=== PATIENT | female | born 1950 | race Caucasian/White ===

== ENCOUNTER 2020-04-06 07:59 | Outpatient (CLI) | payer MEDICARE, SELFPAY ==
--- NOTE | ~2020-04-06 | XR_ITS ---
EXAMINATION: XR hand LT 2V, XR hand RT 2V DATE: 04/06/2020 09:47 INDICATION: Bilateral hand pain TECHNIQUE: 1. Posteroanterior, oblique and lateral views of the left hand were obtained. 2. Posteroanterior, oblique and lateral views of the right hand were obtained. COMPARISON: None. FINDINGS: Diffuse osteopenia. Alignment is normal at both hands. No fracture. Polyarticular osteoarthritis suzy acterized by nonuniform joint space narrowing or marginal osteophytes with typical distribution at mu ltiple joints in both hands. This is of moderate severity at the right third distal interphalangeal j oint and mild at the bilateral wrist, midcarpal, triscaphe, first carpometacarpal and majority the me tacarpophalangeal and interphalangeal joints. There is a prominent dorsal osteophyte at the base of t he third distal phalanx with mild flexion at the distal interphalangeal joint suggesting prior avulsi on injury at the insertion of the extensor tendon. No cortical erosions to suggest an inflammatory ar thritis. Mild soft tissue swelling along the bilateral ulnar styloid processes and mild periarticular soft tissue swelling and subtle the metacarpophalangeal and interphalangeal joints. IMPRESSION: 1. Relatively symmetric pattern of generally mild polyarticular osteoarthritis throughout both hands and wrists. 2. Mild flexion with more severe moderate osteoarthritis at the right third distal interphalangeal chuck int which suggests secondary osteoarthritis related to prior extensor tendon avulsion injury. 3. Diffuse osteopenia. Reviewed, dictated and finalized at location B. IMPRESSION: 1. Relatively symmetric pattern of generally mild polyarticular osteoarthritis throughout both hands and wrists. 2. Mild flexion with more severe moderate osteoarthritis at the right third dis matt interphalangeal joint which suggests secondary osteoarthritis related to pr ior extensor tendon avulsion injury. 3. Diffuse osteopenia.
[2020-04-06 08:54] LABS: Basophils Percent Auto 0.5 % (0.2-1.2); Eosinophils Percent Auto 0.8 % (0-4.4); Hematocrit 42.8 % (37.0-47.0); Hemoglobin 14.4 g/dL (12.0-15.0); Immature Granulocyte Absolute 0.01 K/mm3 (0.00-0.031); Immature Granulocyte Percent A 0.3 % (0-0.5); Lymphocytes Absolute Auto 1.07 K/mm3 (0.9-3.2); Lymphocytes Percent Auto 29.4 % (18.3-44.2); Mean Corpuscular HGB Conc 33.6 g/dl (32-36); Mean Corpuscular Volume 92.2 fl (80-100); Mean Platelet Volume 10.1 fl (7.4-10.4); Monocytes Absolute Auto 0.4 K/mm3 (0.1-0.6); Monocytes Percent Auto 10.2 % (2.6-8.5); Neutrophils Absolute Auto 2.1 K/mm3 (1.3-6.7); Neutrophils Percent Auto 58.8 % (45.5-73.1); Platelet Count Result 150 k/mm3 (150-375); Red Blood Count 4.64 M/mm3 (4.2-5.4); Red Cell Distribution Width 13.5 % (11.5-14.5); White Blood Count 3.6 K/mm3 (4.5-10.0)
[2020-04-06 09:08] LABS: Rheumatoid Factor < 8.6 IU/ML (<12)
[2020-04-06 09:09] LABS: Alanine Aminotransferase 25 U/L (4-35); Albumin Level 4.4 g/dL (3.5-5.1); Alkaline Phosphatase 70 U/L (38-126); Anion Gap 5 mmol/L (8-16); Aspartate Amino Transferase 33 U/L (14-36); Bilirubin,Total 0.7 mg/dL (0.2-1.3); Blood Urea Nitrogen 13 mg/dL (7-17); CRP < 0.5 mg/dL (<1.0); Calcium 9.6 mg/dL (8.4-10.2); Carbon Dioxide 33 mmol/L (22-30); Chloride 103 mmol/L (98-107); Cholesterol 184 mg/dL (0-200); Estimated Glomerular Filt Rate 55; Glucose 101 mg/dL (65-105); HDL Direct 64 mg/dL; Potassium 4.4 mmol/L (3.4-5.0); Sodium 141 mmol/L (137-145); Triglycerides 162 mg/dL (<150)
[2020-04-06 09:18] LABS: LDL Cholesterol Direct 87 mg/dL
[2020-04-06 09:21] LABS: Erythrocyte Sedimentation Rate 26 mm/hr (0-20)
== END 2020-04-06 08:00 | disposition home or self-care (01) ==
DX: I10 Essential (primary) hypertension (principal); E78.2 Mixed hyperlipidemia; J44.9 Chronic obstructive pulmonary disease, unspecified; M19.042 Primary osteoarthritis, left hand; M19.041 Primary osteoarthritis, right hand; M19.032 Primary osteoarthritis, left wrist; M19.031 Primary osteoarthritis, right wrist; M85.842 Other specified disorders of bone density and structure, left hand; M85.841 Other specified disorders of bone density and structure, right hand
CPT/HCPCS: 36415; 73120; 80053; 80061; 85025; 85652; 86140; 86430

== ENCOUNTER → 2021-06-14 01:06 | Outpatient (CLI) | payer MEDICARE, SELFPAY ==
[2021-06-14 19:19] LABS: SARS-CoV-2 RNA PCR Negative
== END ==
DX: J06.9 Acute upper respiratory infection, unspecified (principal); Z20.822 Contact with and (suspected) exposure to COVID-19
CPT/HCPCS: C9803; U0003; U0005

== ENCOUNTER 2022-12-11 06:47 | Outpatient (CLI) | payer MEDICARE, SELFPAY ==
[2022-12-11 07:22] LABS: Basophils Percent Auto 0.8 % (0.2-1.2); Eosinophils Absolute Auto 0.1 K/mm3 (0-0.3); Eosinophils Percent Auto 1.4 % (0-4.4); Hematocrit 41.3 % (37.0-47.0); Hemoglobin 13.6 g/dL (12.0-15.0); Immature Granulocyte Absolute 0.01 K/mm3 (0.00-0.031); Immature Granulocyte Percent A 0.3 % (0-0.5); Lymphocytes Absolute Auto 1.52 K/mm3 (0.9-3.2); Lymphocytes Percent Auto 41.3 % (18.3-44.2); Mean Corpuscular HGB Conc 32.9 g/dl (32-36); Mean Corpuscular Hemoglobin 30.3 pg (26-34); Mean Platelet Volume 10.2 fl (7.4-10.4); Monocytes Absolute Auto 0.4 K/mm3 (0.1-0.6); Neutrophils Absolute Auto 1.6 K/mm3 (1.3-6.7); Neutrophils Percent Auto 44.2 % (45.5-73.1); Platelet Count Result 154 k/mm3 (150-375); Red Blood Count 4.49 M/mm3 (4.2-5.4); Red Cell Distribution Width 14.3 % (11.5-14.5); White Blood Count 3.7 K/mm3 (4.5-10.0)
[2022-12-11 07:34] LABS: Alanine Aminotransferase 26 U/L (6-35); Albumin Level 4.5 g/dL (3.5-5.1); Alkaline Phosphatase 77 U/L (38-126); Anion Gap 5 mmol/L (8-16); Aspartate Amino Transferase 30 U/L (14-36); Bilirubin,Total 0.5 mg/dL (0.2-1.3); Blood Urea Nitrogen 16 mg/dL (7-17); Calcium 8.8 mg/dL (8.4-10.2); Carbon Dioxide 28 mmol/L (22-30); Chloride 106 mmol/L (98-107); Cholesterol 175 mg/dL (0-200); Estimated Glomerular Filt Rate > 60; Glucose 84 mg/dL (65-110); HDL Direct 54 mg/dL; Potassium 4.7 mmol/L (3.4-5.0); Sodium 139 mmol/L (137-145); Triglycerides 197 mg/dL (<150)
[2022-12-11 07:45] LABS: LDL Cholesterol Direct 78 mg/dL
[2022-12-11 09:09] LABS: Free T4 Free Thyroxine Reflex 0.97 ng/dL (0.78-2.19)
[2022-12-11 10:34] LABS: Total Triiodothyronine (T3) 1.49 NG/ML (0.97-1.69)
== END 2022-12-11 06:48 | disposition home or self-care (01) ==
DX: E78.5 Hyperlipidemia, unspecified (principal); I10 Essential (primary) hypertension; E04.2 Nontoxic multinodular goiter
CPT/HCPCS: 36415; 80053; 80061; 84439; 84443; 84480; 85025

== ENCOUNTER 2025-04-17 07:38 | Outpatient (CLI) | payer MEDICARE, SELFPAY ==
--- OUTSIDE RECORDS SUMMARY | 2025-04-17 07:49 | XMS_ITS | Clinical Summary ---
Author Organization [facility] Address [address] [place] [address] Care Team Providers Care Government Property Inspector Name Role Phone Unavailable Primary Care Provider Unavailabl e Source Comments [facility],non-owned Affiliates and Associated Physician Practices is amultiple site organization consisting of ambulatory clinics and hospital sitesin [place] and [place]. This disclosure is being madepursuant to the Care Everywhere program and may not contain all information available regarding this patient. Last updated 18.[facility] Social History Tobacco Use Types Packs/Day Years Used Date Smoking Tobacco: Never Assessed Comments Unknown Sex and Gender Information Value Date Recorded Sex Assigned at Not on file Legal Sex Female 11:37 PM CDT Gender Identity Not on file Sexual Orientation Not on file Plan of Treatment Health Maintenance Due Date Last Done Comments BONE DENSITY TESTING 1950 HEPATITIS C SCREENING 10/02/1966 DTAP/TDAP/TD VACCINES (1 - Tdap) 10/07/1967 PNEUMOCOCCAL VACCINE 50+ (1 of 1 - PCV) 1998 ZOSTER VACCINE (1 of 2) 1998 Respiratory Syncytial Virus (RSV) Vaccine Pt: or over 60 yrs (1 - 1-dose 75+ series) 10/07/2023 DEPRESSION SCREENING 06/22/2024 COVID-19 VACCINE ( - 2023-2 5 season) 2025 INFLUENZA VACCINE (#1) 2025 HEPATITIS B VACCINE Aged Out No longe r eligible based on patient's age to complete this topic HIB VACCINE Aged Out No longer eligi ble based on patient's age to complete this topic HPV VACCINE Aged Out No longer eligi ble based on patient's age to complete this topic MENINGOCOCCAL (Group B) VACC INE SHARED DECISION-MAKING Aged Out No longer eligibl e based on patient's age to complete this topic MENINGOCOCCAL GROUPS A/C/Y/W VACCINE Aged Out No longer eligible b ased on patient's age to complete this topic Insurance
--- OUTSIDE RECORDS SUMMARY | 2025-04-17 07:49 | XMS_ITS | Clinical Summary ---
Author Organization [facility] Address [address] [place] [address] Care Team Providers Care Gifts Officer Name Role Phone Carolina Carlton MD Unavailable Bessie Barrientos MD Unavailable Amy Varghese MD Unavailable [phone] Larry Hughes MD PhD Unavailable Tiny Elaine MD Unavailable [phone] Frank Pérez MD Unavailable Robert Duque MD PhD Unavailable [phone] Nell Titus MD Primary Care Provid er Allergies Active Allergy Reactions Criticality Noted Date Comments Sulfa (Sulfonamide Antibiotics) Hives Medium 09/21 Medications ketoconazole (NIZORAL) 2 % creamIndications:I ntertrigo Mix with hydrocortisone 2.5% cream and apply twice a day to rash under breasts as needed. 60 g 3 020 Active Additional Information Patient not taking.Reported on 04/03/2025 triamcinolone (KENALOG) 0.1 % ointmentIndication s:Rash and other nonspecific skin eruption Apply into affected area(s) on buttocks daily 30 g 11 06/25/2 020 Active melatonin 10 mg tablet Take 1 tablet (10 mg total) by mouth nightly Active albuterol HFA (ProAir HFA) 90 mcg/actuation inhaler Inhale 2 puffs every 4 (four) hours as needed for wheezing or shortness of breath 8.5 g 5 024 Active tretinoin (RETIN-A) 0.1 % cream APPLY TO AFFECTED AREA AT NIGHT Active tacrolimus (PROTOPIC) 0.1 % ointmentIndication s:Cheilitis Apply topically 2 (two) times a day 100 g Active hydrocortisone 1 % ointmentIndication s:Skin Inflammation Apply topically 2 (two) times a day 30 g Active Additional Information Patient not taking.Reported on 04/03/2025 cholecalciferol (VITAMIN D-3) 5,000 unit tablet Take 1 tablet (5,000 Units total) by mouth daily Active minoxidiL (LONITEN) 2.5 mg tabletIndications: hypertension Take 1 tablet (2.5 mg total) by mouth daily 30 tablet 11 025 12/27 Active rosuvastatin (CRESTOR) 40 mg tablet TAKE 1 TABLET BY MOUTH EVERY DAY 90 tablet 3 Active buPROPion XL (WELLBUTRIN XL) 300 mg 24 hr tablet Take 1 tablet (300 mg total) by mouth daily Take with 150 mg tablet for a total of 450 mg daily. 90 tablet 1 025 08/15 Active buPROPion XL (WELLBUTRIN XL) 150 mg 24 hr tablet TAKE 1 TABLET BY MOUTH EVERY MORNING TAKE WITH 300 MG TABLET FOR A (TOTAL OF 450 MG DAILY.) 90 tablet 1 Active hydrocortisone 2.5 % creamIndications:I nflamed seborrheic keratosis APPLY TWICE DAILY TO AFFECTED RED AREAS ON THE CHEST FOR 3 WEEKS. 28 g 3 Active amoxicillin-clavul anate (AUGMENTIN) suspension 400-57 mg/5 mLIndications:Comm on variable immunodeficiency TAKE 10.9ML BY MOUTH DAILY. DISCARD REMAINDER. 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 Recently, within last 1 month, notes bilateral tinnitus. Has started using ear protection when she uses the marketing pr intern. 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 She follows with Dr. Varghese in immunology, and Dr. Elaine in dermatology. 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 Pérez in ENT, who recommended laryngeal control therapy at the [facility]. Assessment & Plan (10/19/2020 9:30 AM CDT): While I don't know that she has classic PVFM, her symptoms are consistent with episodes of laryngospasm. I have recommended laryngeal control therapy here at the [facility] in order to control the patient's symptoms. The patient's diagnosis was discussed in detail along with how therapy can improve it. Osteopenia 10/15/2020 Overview (11/06/2021): Bone density scan 10/2021 with T-scores lumbar spine -0.2, left total hip -0.5, and left femoral neck -0.9. She is on vitamin D supplementation. Liver lesion 04/26/2020 Overview (06/26/2021): CT a/p 04/2020 with incidental indeterminate ill-defined 10 mm hypodense lesion in the liver, differential includes focal fat deposition vs hemagioma. 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 No additional follow up needed. Left upper quadrant abdominal mass 01/24/2020 Overview (04/26/2020): Incidental 1 cm soft tissue nodule noted on CT colonography 01/24/2020 between transverse and proximal descending colon is likely extraluminal and could represent splenule or small lymph node. Follow up imaging with contrast-enhanced CT recommended. Repeat CT 04/2020 confirmed splenule that was unchanged since 2016. Multiple thyroid nodules 01/21/2019 Overview (01/21/2019): Thyroid ultrasound 01/21/19- 2 nodules, low suspicion. No further follow up recommended. Anxiety and depression 12/28/2018 Overview (10/02/2022): Currently on bupropion and propranolol. She had minimal therapeutic response to previous trials of escitalopram, sertraline, fluoxetine, and venlafaxine. She has ongoing psychotherapy. 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 No SI. On Wellbutrin 450 mg daily. Seeing a counselor regularly; has seen the same counselor for 35 years. PLAN: - Continue current medication regimen - Continue regular counseling Assessment & Plan (12/28/2018 3:56 PM CDT): Seems to be well controlled. We will refill Wellbutrin as requested and continue to follow. 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 Seen by ortho Dr. Rock who recommends no further treatment. Primary osteoarthritis involving multiple joints 12/28/2018 Overview (06/05/2021): Primarily in the knees and hands. Mild bilateral osteoarthritis on hand films 03/2020, more severe in the right 3rd ITP due to a extensor tendon avulsion injury. 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 Varghese with immunology. She gets IVIG every 4 weeks. Dysphagia 04/02/2015 Overview (12/28/2018): History of EGD x2 with dilation of mild stenosis at the gastroesophageal junction. 2014 and 2015 Essential hypertension 12/10/2009 Assessment & Plan (04/03/2025 1:59 PM CDT): Blood pressure elevated today but better controlled at home. Patient would like to come off some of her medications. I discussed with her that as her blood pressure is borderline we would likely keep her current regimen as is. Continue candesartan 8 mg b.i.d. and propranolol 60 mg daily. 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 Goal BP < 130/80. BP Readings from Last 3 Encounters: 05/04/24 144/84 04/22/24 156/69 03/29/24 129/78 PLAN: - Continue current medication regimen - Asked patient to send me home BP in 1 month Assessment & Plan (12/28/2018 3:49 PM CDT): Will be switching to candesartan per her doweling machine operator's recommendation. Her blood pressure is well controlled. Will plan on getting baseline labs. Hyperlipidemia 12/10/2009 Overview (10/02/2022): On rosuvastatin for primary prevention Assessment & Plan (04/03/2025 1:59 PM CDT): Last LDL was from April 2024. Repeat fasting lipid panel. Continue Crestor 40 mg daily. Patient interested in coming off medications. Discussed with her that we can try decreasing Crestor dose based off cholesterol panel. Assessment & Plan (12/28/2018 3:50 PM CDT): She is currently taking rosuvastatin without complaints. Will plan to check a lipid panel. Resolved Problems Problem Noted Date Diagnosed Date Resolved Date Encounter for well woman onesimo miller with routine gynecological exam 03/11/2024 04/24/2024 Assessment & Plan (03/11/2024 5:52 PM CDT): - Last Pap NILM in 2022, patient prefers screening to be updated and yearly given her hx of immunodeficiency - Routine STI testing offered and declines - Mammogram: 07/21/23 BIRADS 1 - Colon cancer screening: Colonoscopy 02/2019 normal colon, benign splenule appreciated on follow up CT imaging - Dexa: 02/17/24 osteopenia with significant decrease in bone density since 2021 - Reviewed AHA recommendation of 150 minutes of moderate-intensity activity per week, 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 PFTs with minimal obstructive ventilatory defect largely stable from 2019 although with interval decrease in FVC. High resolution CT without evidence of ILD; scattered centrilobular groundglass nodules likely represents nonspecific respiratory bronchiolitis. Repeat chest CT 06/2021 showed subsegmental atelectasis in the RML, as well as rounded atelectasis and pleural thickening in the LLL and subsegmental atelectasis or scarring in the RLL inferior sulcus, all stable, no evidence of ILD; most recent CT 07/2022 largely stable. Follows with Dr. Carlton. Assessment & Plan (12/28/2018 4:16 PM CDT): She denies any trouble with breathing at this time. She is able to run and do her usual workout routines. She has prn albuterol, but states she does not use it frequently. Encounters Date Type Department Care Team Description 04/05/2025 Results Follow-Up [facility] [address]th [place] [address] [place] [address] Nell Titus MD Screening Mammogram Bilateral W Nader 04/03/2025 2:01 PM CDT - 04/03/2025 11:59 PM CDT Hospital Encounter [facility] [address] [place] [address] Screening mammogram, encounter for Discharge Disposition: Discharge to home or self care 04/03/2025 1:30 PM CDT Office Visit [facility] [address] [place] [address] 8th [place] [address] [place] [address] Trevor Carcamo NP Essential hypertension (Primary Dx); Hyperlipidemia, unspecified hyperlipidemia type 03/24/2025 7:30 AM CDT Infusion [facility] [address] [place] [address] CVID (common variable immunodeficiency) (Primary Dx) 03/13/2025 9:30 AM CDT Office Visit [facility] [address] [place] [address] 8th [place] [address] [place] [phone] Lg Harkins MD CVID (common variable immunodeficiency) (Primary Dx); SOB (shortness of breath); Obstructive lung disease (generalized) 03/13/2025 8:25 AM CDT - 03/13/2025 11:59 PM CDT Hospital Encounter [facility] [address] [place] [address] CVID (common variable immunodeficiency) Discharge Disposition: Discharge to home or self care 03/06/2025 10:00 AM CDT Office Visit [facility]at[facility] [address] [place] [phone] Tiny Elaine MD Inflammatory papule (Primary Dx); Inflamed seborrheic keratosis 02/24/2025 7:30 AM CDT Infusion [facility] [address] [place] [phone] CVID (common variable immunodeficiency) (Primary Dx) 02/17/2025 Orders Only [facility] [address] [place], [place] [address] [address] [place] [phone] Jerome Murillo RN 02/13/2025 1:00 PM CDT Telemedicine [facility] [address] [place] [address] Amy Varghese MD Common variable immunodeficiency (Primary Dx); Cheilitis 01/27/2025 8:00 AM CDT Infusion [facility] [address] [place], [place] [address] [address] [place] [phone] CVID (common variable immunodeficiency) (Primary Dx) from Last 3 Months Immunizations Immunization Administration Dates Next Due COVID-19 MRNA (MODERNA) .5 M L (50 MCG) VACCINE (12 YEARS AND UP) 03/10/2023 Influenza, Quad, Adjuvantate d, Intramuscular 04/04/2024,03/23/2020 Influenza, Quadrivalent, Hig h Dose, Preservative Free, Intrr 03/10/2023,04/08/2022,03/17/2021 Influenza, Trivalent, Adjuva nted, Intramuscular 03/18/2024 Influenza, Trivalent, High D ose, Split, Preservative Free, Intramuscular 03/17/2019,03/06/2018,03/27/2015 Influenza, Trivalent, IM (MDV) 03/09/2017,2012 Moderna SARS-CoV-2 Monovalen t Vaccination (12+ YRS) 09/06/2020 Moderna Sars-cov-2 Bivalent Vaccine 50 Mcg/0.5 mL (12+ YRS)-Blue/Hernandez 04/04/2024 Pneumococcal Conjugate Pcv20 03/31/2023 RSV Vaccine, Pref, Recombina nt, Subunit, Adjuvanted, PF, IM (Arexvy) 03/31/2023 Tdap 01/25/2024 ZOSTER Recombinant 08/06/2023 Surgical History Surgery Date Site/Laterality Comments BACK SURGERY Back Surgery - X4 [id number] (Added by TW Conv) [place] DELIVERY ONLY Section - (Added by TW Conv) EYE SURGERY cataract surgery on both eyes MENISCUS SURGERY 06/22/2015 - 06/21/2016 GALLBLADDER SURGERY 06/22/2001 - 06/21/2002 approximate date CHOLECYSTECTOMY 2004 CATARACT EXTRACTION 2019 SECTION 1985 Medical History Medical History Date Comments Personal history of other me ntal and behavioral disorders History of depression - (Add ed by TW Conv) Personal history of other di seases of the circulatory system History of mitral valve diso rder - (Added by TW Conv) Abnormal Pap smear of cervix Anemia Anxiety Arthritis Depression COPD (chronic obstructive pu lmonary disease) Heart murmur Hypertension Migraines Pneumonia Pulmonary embolism Allergic rhinitis Dysphagia GERD (gastroesophageal reflux disease) Mitral valve prolapse Cataract History of transfusion CVID (common variable immunodeficiency) Bulimia nervosa 1975 Family History Medical History Relation Name Comments Heart disease Father Edward Tallant Heart Diseas e - (Added by TW Conv) Hypertension Father Edward Tallant Hypertension - (Added by TW Conv) Lung cancer Father's Sister Family histo ry of lung cancer - decased (Added by TW Conv) Arthritis Mother Kiara Tallant COPD Mother Kiara Tallant Family history of chronic obstructive pulmonary disease - mother (Added by TW Conv) Emphysema Mother Kiara Tallant Hypertension Mother Kiara Tallant Osteoporosis Mother Kiara Tallant Family history of osteoporosis - (Added by TW Conv) Stroke Mother Kiara Tallant COPD Sister Nicholas Tallant Family histor y of chronic obstructive pulmonary disease - mother (Added by TW Conv) Emphysema Sister Nicholas Tallakanksha Relation Name Status Comments Father Edward Tallant Father's Sister Mother Kiara Tallant Sister Nicholas Kirkland Social History Tobacco Use Types Packs/Day Years Used Date Smoking Tobacco: Former Cigarettes 1 8 1 971 - 1978 Smokeless Tobacco: Never Tobacco Cessation:Counseling Given: Not Answered Comments:stopped in 1978 Alcohol Use Standard Drinks/Week Comments Yes 6 (1 standard drink = 0.6 oz pur e alcohol) 2-3 xweek AUDIT-C Answer Date Recorded Q1: How often do you have a drink containing alc ohol? 2-3 times a week 03/11/2024 Q2: How many drinks containi ng alcohol do you have on a typical day when you are drinking? 1 or 2 03/11/2024 Q3: How often do you have si x or more drinks on one occasion? Never 03/11/2024 PHQ-2 Answer Date Recorded PHQ-2 Total Score (If total score is 3 or more points, staff should administer the PHQ-9) 2 04/25/2024 Exercise Vital Sign Answer Date Recorde d Days of Exercise per Week 3 days 2018 Minutes of Exercise per Session 60 min 12/28/2018 Hunger Vital Sign Answer Date Recorded Within the past 12 months, y ou worried that your food would run out before you got the money to buy more. Never true 03/24/20 25 Within the past 12 months, t he food you bought just didn't last and you didn't have money to get more. Never true 03/24/2025 Personal Safety Answer Date Recorded Have you ever been in or are you currently in a harmful physical or emotional relationship or is someone making you feel afraid or unsafe? 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 Gender Identity Female 02/28/2020 8:23 AM CDT Sexual Orientation Straight 02/28/2020 8: 23 AM CDT Obstetrics History Para Term AB IAB SAB Ectopic Multiple Livin g Live Births 5 2 2 3 3 2 2 Date Outcome GA Total Labor Labor/2nd/3rd Weight Sex Type Anes PTL Nataliia A1 A5 Name Clin SAB SAB SAB 1979 Term F Vag-S pont Living 1985 Term F CS-Un spec Living Last Filed Vital Signs Vital Sign Reading Time Taken Comments Blood Pressure 146/77 04/03/2025 1:03 PM CDT Pulse 57 04/03/2025 1:03 PM CDT Temperature 36.4 C (97.5 F) 03/24/2025 7:13 AM CDT Respiratory Rate 16 03/24/2025 7:13 AM CDT Oxygen Saturation 98% 04/03/2025 1:03 PM CDT Inhaled Oxygen Concentration - - Weight 61.9 kg (136 lb 6.4 oz) 04/03/2025 1:03 P M CDT Height 160 cm (5' 3) 04/03/2025 1:03 PM CDT Body Mass Index 24.16 04/03/2025 1:03 PM CDT Plan of Treatment Health Maintenance Due Date Last Done Comments Depression Screening 10/23/2021 10/23/2020, 10/23/2020, 12/28/2018 Fall Risk Assessment 10/23/2021 10/23/2020 Zoster Vaccine (2 of 2) 10/01/2023 08/06/2023 Covid-19 Vaccine ( season) 2025 10/03/2024, 04/04/2024, 03/18/2024, Additional history exists Influenza Vaccine (#1) 2025 , 03/18/2024, 03/10/2023, Additional history exists Well Visit 65+ 05/04/2025 05/04/2024, 02/21, 10/21/2021, Additional history exists Osteoporosis Screening-Bone Density Scan 02/16/2026 02/17/2024, 11/06/2021, 10/12/2020 DTaP/Tdap/Td Vaccine (2 - Td or Tdap) 01/24/2034 01/25/2024 Hepatitis C Screening Completed 01/05/2019 Colon Cancer Screening-Colonoscopy Discontinued 03/21/2019 Colon Cancer Screening-CT Colonography Discontinued 01/24/2020, 03/21/2019 Colon Cancer Screening-DNA Stool Discontinued 01/24/20 20, 03/21/2019 Colon Cancer Screening-FIT Discontinued 01/24/2020, Colon Cancer Screening-FOBT Discontinued 01/24/2020, 0 03/21/2019 Colon Cancer Screening-Sigmoidoscopy Discontinued 01/24/2020, 03/21/2019 Colorectal Cancer Screening Discontinued Pneumococcal vaccine 65+ Completed 03/31/2023 Hepatitis B Screening Completed 01/25/2024 Breast Cancer Screening-Mammogram Discontinued 04/03/2025, 10/05/2024, 07/21/2023, Additional history exists Procedures Procedure Name Priority Date/Time Associated Diagnosis Comments SCREENING MAMMOGRAM BILATERAL W NADER Schedule Routine, Read Routine (OP Routine) 04/03/2025 2:43 PM CDT Screening mammogram, encounter for PULMONARY FUNCTION TEST (PFT) Routine 03/13/2025 8:43 AM CDT CVID (common variable immunodeficiency) DEXA AXIAL SKELETON BONE DENSITY 1 OR MORE SITES Schedule Routine, Read Routine (OP Routine) 02/17/2024 1:38 PM CDT Osteopenia, unspecified location Unspecified menopausal and perimenopausal disorder CT VIRTUAL COLONOSCOPY SCREENING Schedule TASIA, Read TASIA (Appt Today, Awaiting Results) 01/24/2020 9:10 AM CDT Colon cancer screening COLONOSCOPY 03/21/2019 9:07 AM CDT HEPATITIS C ANTIBODY Routine 01/05/2019 10:18 AM CDT Health care maintenance from Last 3 Months or Most Recently Relevant to Health Maintenance Results * Screening Mammogram Bilateral W Nader (04/03/2025 2:43 PM CDT) Anatomical Region Laterality Modality Breast Bilateral Mammography Impressions 04/04/2025 9:24 AM CDT Bilateral No evidence of malignancy in either breast. OVERALL BI-RADS FINAL ASSESSMENT: 1 - Negative RECOMMENDATION: Recommend bilateral annual screening mammography. Narrative 04/04/2025 9:24 AM CDT EXAMINATION: Screening Mammogram Bilateral W Nader: 04/03/2025 COMPARISON: Relevant prior studies available at the time of interpretation were reviewed, including the most recent mammogram on: 10/05/2024. TECHNIQUE: Mammography was performed with 2D and 3D digital breast tomosynthesis (DBT) images. CAD was utilized. BREAST PARENCHYMAL COMPOSITION: The breasts are heterogeneously dense, which may obscure small masses. FINDINGS: Bilateral There is no suspicious mass, calcification, or architectural distortion in either breast. Self Screening Mammogram IMG MAMMO PROCEDURES Fi nal Result * Pulmonary Function Test - (03/13/2025 8:43 AM CDT) FVC PRE 2.30 L [facility] FVC %PRE PRED 95 % [facility] FEV1 PRE 1.62 L [facility] FEV1 %PRE PRED 86 % [facility] FEV1/FVC PRE 70.6 % [facility] Anatomical Region Laterality Modality PFT 03/13/2025 8:39 AM CDT Narrative 03/13/2025 8:54 AM CDT PFT performed at:->[id number] Procedure:->Spirometry Pulmonary Function Test Interpretation SPIROMETRY: Spirometry is normal. The flow volume loop is normal. Impression: There is no significant ventilatory defect. Compared with most recent study, there has been no significant interval change. The attending pulmonary physician certifies a physician presence in the [facility] during the administration of aerosolized bronchodilator. The attending pulmonary physician certifies that he/she has reviewed and interpreted the graphic and numerical data of this pulmonary function study and agrees with the written final report. The lower limit of normal for PaO2 and %HbO2 is age dependent. However, the [facility] defines hypoxemia as a PaO2 <56 mm Hg or a %HbO2 <89%. Starting on June of 2024 the [facility] utilizes race neutral GLI Global normative equations. Lg Harkins MD PFT ORDERABLES Final Result * Dexa Axial Skeleton Bone Density 1 or 2 Site (02/17/2024 1:38 PM CDT) Anatomical Region Laterality Modality Body N/A Radiographic Elba ging Narrative 02/17/2024 10:47 PM CDT Patient Name: Kita Kirkland Date of : 1950 Date of scan: 02/17/2024 Bone mineral density was performed on a [employer] Discovery Densitometer. Based on machine cross-calibration and precision studies the least significant changes of this densitometer is 0.024 g/cm2 at the spine, 0.020 g/cm2 at the total proximal femur, and 0.014g/cm2 at the forearm. HISTORY: This is a 73 y.o. postmenopausal female with a history of low bone mass. She reports that she quit smoking about 45 years ago. Her smoking use included cigarettes. She started smoking about 53 years ago. She has a 8 pack-year smoking history. She has never used smokeless tobacco. Currently on treatment with vitamin D, previously treated with anticoagulants, and current complaint of back pain. INDICATIONS: Menopause status and history of low bone mass. FINDINGS: BONE MINERAL DENSITY OF THE LUMBAR SPINE Bone Mineral Density (BMD) of the lumbar spine was measured from L1-L3 and the average density was calculated to be 0.961 gm/cm2. This corresponds to a T-score (standard deviations from the mean of young adults) of -0.5. When compared to the previous study of 11/06/2021 there has been a -0.035 gm/cm (-3.5%) decrease in bone density that is considered significant. BONE MINERAL DENSITY OF THE PROXIMAL FEMUR Bone Mineral Density (BMD) of the left hip total was found to be 0.868 gm/cm2. This corresponds to a T-score standard deviations from the mean of young adults of -0.6. Femoral neck is 0.723 gm/cm2 with a T-score (standard deviations from the mean of young adults) of -1.1. When compared to the previous study of 11/06/2021 there has been no significant changes in bone density. SUMMARY: Bone mineral density shows evidence of low bone mass at the proximal femur and moderately increased fracture risk (Osteopenia). There has been a significant decrease in bone density since previous measurement. ADDITIONAL COMMENTS: Postmenopausal Women and Men Over 50: Diagnostic criteria: Osteoporosis: BMD at or below -2.5 T-score; Osteopenia (low bone mass): BMD between -1.0 and -2.5 T-score. If the patient has a history of a fragility fracture, a fracture that occurred with trauma equivalent to a fall from a standing position or less, then the diagnosis is osteoporosis regardless of bone density. The history and data sections of the bone mineral density scan were prepared by Gladys Blanchard (R)(CBDT)who is accredited by the International Society of Clinical Densitometry. The overall patient assessment and scan interpretation were performed by Marii Ramirez M.D. who is certified by the International Society of Clinical Densitometry. [id number] Nell Titus MD IMG DXA PROCEDURES F inal Result * CT Colonoscopy Screening (01/24/2020 9:10 AM CDT) Anatomical Region Laterality Modality Body N/A Computed Tomogra phy 01/24/2020 9:48 AM CDT Addenda Addendum by Cameron Sherwood MD on 09/16/2020 12:23 AM CDT Follow up abdomen and pelvis CT completed 04/25/20. Yarelis NAVARRO, RN. Edited by: Yarelis Becker Electronically signed by: Cameron Sherwood M.D. Impressions 01/24/2020 12:40 PM CDT 1. C1: Normal colon or benign lesion, continue routine screening. 2. E3: Likely unimportant finding, incompletely characterized 3. A 1 cm soft tissue nodule between transverse and proximal descending colon is likely extraluminal and could represent splenule or small lymph node. Follow up imaging with contrast-enhanced CT in 3-6 months is recommended. Recommend follow up of the Incidental left upper quadrant lesion Additional Imaging in 3 Months-6 months with contrast enhanced CT. Dictated by: Chris Lainez M.D. The radiology attending physician has personally reviewed this study, and had reviewed and/or edited this written report and agrees with it. Electronically signed by: Cameron Sherwood M.D. Narrative 01/24/2020 12:40 PM CDT EXAMINATION: CT colonography without intravenous contrast HISTORY: 69 year old woman with TECHNIQUE: Transaxial computed tomographic images through the abdomen and pelvis were obtained without intravenous contrast after insufflation of the colon with CO2 through a rectal catheter. Images were obtained in the supine and right lateral decubitus positions. COMPARISON: None FINDINGS: The following findings are reported according to the CT Colonography Reporting and Data System (C-RADS) from Radiology 2005; 236:3-9. Colonic preparation and distention: adequate. All six segments of the colon are adequately distended on both supine and right lateral decubitus views. Colonic findings: There is colonic diverticulosis No polyps greater than 5 mm are detected. Extracolonic findings: This CT examination is performed without intravenous contrast and with a low dose technique optimized for evaluation of the colon. There is a 1 cm (slice -287) round soft tissue nodule lesion in between transverse and proximal descending colon in the left upper quadrant which is likely extraluminal . It is indeterminate but may represent a splenule or lymph node. Cholecystectomy changes noted. There is atelectasis in the lung bases. There is atherosclerosis of the aorta. There is multilevel degenerative disc disease. Procedure Note Cameron Sherwood MD - 01/24/2020 EXAMINATION: CT colonography without intravenous contrast HISTORY: 69 year old woman with TECHNIQUE: Transaxial computed tomographic images through the abdomen and pelvis were obtained without intravenous contrast after insufflation of the colon with CO2 through a rectal catheter. Images were obtained in the supine and right lateral decubitus positions. COMPARISON: None FINDINGS: The following findings are reported according to the CT Colonography Reporting and Data System (C-RADS) from Radiology 2005; 236:3-9. Colonic preparation and distention: adequate. All six segments of the colon are adequately distended on both supine and right lateral decubitus views. Colonic findings: There is colonic diverticulosis No polyps greater than 5 mm are detected. Extracolonic findings: This CT examination is performed without intravenous contrast and with a low dose technique optimized for evaluation of the colon. There is a 1 cm (slice -287) round soft tissue nodule lesion in between transverse and proximal descending colon in the left upper quadrant which is likely extraluminal . It is indeterminate but may represent a splenule or lymph node. Cholecystectomy changes noted. There is atelectasis in the lung bases. There is atherosclerosis of the aorta. There is multilevel degenerative disc disease. IMPRESSION: 1. C1: Normal colon or benign lesion, continue routine screening. 2. E3: Likely unimportant finding, incompletely characterized 3. A 1 cm soft tissue nodule between transverse and proximal descending colon is likely extraluminal and could represent splenule or small lymph node. Follow up imaging with contrast-enhanced CT in 3-6 months is recommended. Recommend follow up of the Incidental left upper quadrant lesion Additional Imaging in 3 Months-6 months with contrast enhanced CT. Dictated by: Chris Lainez M.D. The radiology attending physician has personally reviewed this study, and had reviewed and/or edited this written report and agrees with it. Electronically signed by: Cameron Sherwood M.D. us Robert Duque MD PhD IMG CT PROCEDURES Edit ed Result - Final * COLONOSCOPY (03/21/2019 9:07 AM CDT) Anatomical Region Laterality Modality Other Narrative Procedure Note Robert Duque MD PhD - 03/21/2019 9:07 AM CDT GI ENDOSCOPY [facility] Patient Name: Kita Kirkland Procedure Date: 03/21/2019 9:07 AM Date of : 1950 Admit Type: Outpatient Age: 68 Gender: Female Attending MD: Robert Duque MD,PHD Room: [facility] ENDOSCOPY ROOM 3 Note Status: Finalized Procedure: Colonoscopy Indications: Screening for colorectal malignant neoplasm, Last colonoscopy: November 2011 Referring MD: RENZO Ellis Providers: Robert Duque MD, PHD, Radha Trejo M.D. Medicines: Monitored Anesthesia Care Complications: Scope trauma Estimated Blood Loss: Estimated blood loss was minimal. Procedure: Pre-Anesthesia Assessment: - Prior to the procedure, a History and Physical was performed, and patient medications, allergies and sensitivities were reviewed. The patient's toleranceof previous anesthesia was reviewed. - The risks and benefits of the procedure and the sedation options and risks were discussed with the patient. All questions were answered and informed consent was obtained. - After reviewing the risks and benefits, thepatient was deemed in satisfactory condition to undergo the procedure. - Immediately prior to administration ofmedications, the patient was re-assessed for adequacy to receive sedatives. The benefits, risks and alternatives of theprocedure and sedation were discussed and informed consent was obtained. All questions were answered. Please referto the signed informed consent document in the medical record. The scope was passed under direct vision.The CF [id number] [id number] endoscope was introduced throughthe anus with the intention of advancing to the splenic flexure. The scope was advanced to the sigmoid colon before the procedure was aborted. Medications werenot given. The colonoscopy was technically difficult and complex. The patient tolerated the procedure. The quality of the bowel preparation was evaluated using the BBPS ([place] Bowel Preparation Scale) withscores of: Right Colon = 3 (entire mucosa seen well with no residual staining, small fragments of stool oropaque liquid). The total BBPS score equals 3. The bowel preparation used was GoLYTELY. Bowel prep was administered using a split dose. The quality of the bowel preparation was could not be evaluated as procedure not completed. Findings: The perianal and digital rectal examinations were normal. Tight turn attempted to be traversed in the sigmoid colon. Uponsecond attempt it was noted that there was a shallow tear in the mucosa. Submucosal tissue was visualized. Impression: Tight turn attempted to be traversed in the sigmoid colon. Upon second attempt it was noted that therewas a shallow tear in the mucosa. Submucosal tissue was visualized. It was not safe to complete procedure.Will try to arrange CT colonography today. Recommendation: - CT colonography today Electronically signed by Robert Duque MD PHD Robert Duque MD, PHD 03/21/2019 9:29:17 AM . Number of Addenda: 0 Note Initiated On: 03/21/2019 9:07 AM Recognized by the [place] [employer] for promoting quality in endoscopy Robert Duque MD PhD ENDOSCOPY PROCEDURES F inal Result * Hepatitis C antibody (01/05/2019 10:18 AM CDT) Hep C Ab Nonreactive Nonreactive QIAN KRUGER Comment: Interpretive Data Positive results should be confirmed by a molecular method. If positive, a second separately collected sample should be submitted for Hepatitis C Virus (HCV) RNA Detection and Quantitation by Real-Time Reverse Reeling Machine Setup Operator-PCR (RT-PCR). Current interpretive data was last revised on 2016. Blood specimen (specimen) 01/05/2019 10:18 AM CDT 01/05/2019 10:37 AM CDT Katrina Gallegos HIGH PRESSURE OPERATOR LAB MICROBIOLOGY - GENERAL O RDERABLES Edited Result - Final [facility] [place] [address] from Last 3 Months or Most Recently Relevant to Health Maintenance Insurance T MEDICARE UHC MEDICARE ADVANTAGE [facility] MEDICARE Advance Directives For more information, please contact: [phone] * Full Code (Latest Code Status on File) Date Activated Date Inactivated Comments 10/23/2020 10:57 AM * Full Code Date Activated Date Inactivated Comments 03/21/2019 8:52 AM 03/21/2019 2:45 PM Care Teams Gifts Officer Relationship Specialty Start Date End Date Nell Titus MD [address] [place] [address] PCP - General Geriatric Medicine 01/25/24 Carolina Carlton MD [address] [place] [address] Consulting Physician Pulmonary Disease 10/23/20 Bessie Barrientos MD [address] [address] Consulting Physician Obstetrics and Gynecology 10/23/20 Amy Varghese MD [address] [address] Consulting Physician Allergy and Immunology 10/23/20 Larry Hughes MD PhD [address] [address] Manual Lathe Operator Cardiology 10/23/20 Tiny Elaine MD [facility] [address] [address] Consulting Physician Dermatology 10/23/20 Frank Pérez MD [address] [address] Consulting Physician Otolaryngology 10/23/20 Robert Duque MD PhD [address] [place] [address] Consulting Physician Gastroenterology 10/23/20
--- OUTSIDE RECORDS SUMMARY | 2025-04-17 07:49 | XMS_ITS | Encounter Summary ---
Author Organization [facility] Address [address] [place] [address] Phone Care Team Providers Care Greenhouse Manager Name Role Phone Roni Vasquez MD Primary Care Provider [phone] Martin Phillips MD Primary Care Provider Katrina Gallegos NP Unavailable Carolina Carlton MD Unavailable Bessie Barrientos MD Unavailable [phone] Amy Varghese MD Unavailable [phone] Larry Hughes MD PhD Unavailable [phone] Tiny Elaine MD Unavailable [phone] Frank Pérez MD Unavailable [phone] Robert Duque MD PhD Unavailable [phone] Audrey Kc MD Primary Care Provider Sarahy Zavala MD Primary Care P rovider Nell Titus MD Primary Care Provid er Nell Titus MD Primary Care Provid er Encounter Details Date Type Department Care Team (Late st Contact Info) Description 07/21/2017 Orders Only [facility] Provider, MD [address] [place], [place] [address] Social History Tobacco Use Types Packs/Day Years Used Date Smoking Tobacco: Former Comments Unknown Sex and Gender Information Value Date Recorded Sex Assigned at Not on file Legal 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 Historical Provider LAB BLOOD ORDERABLES Khushi l Result documented in this encounter Visit Diagnoses Not on filedocumented in this encounter Additional Health Concerns Infection Onset Date Last Indicated Resolved Time COVID: Suspected 06/13/2021 06/13/2021 06/27/2021 3:05 AM PHYSICAL EDUCATION PROFESSOR documented as of this encounter Care Teams Greenhouse Manager Relationship Specialty Start Date End Date Roni Vasquez MD [address] [place] [address] PCP - General 09/17/16 12/27/18 Martin Phillips MD [address] [place] [address] PCP - General Geriatric Medicine 12/28/18 01/12/23 Audrey Kc MD [address] [place] [address] PCP - General Geriatric Medicine 01/13/23 03/08/23 Sarahy Zavala, MD [address] [facility] [id number] [place] [address] PCP - General Geriatric Medicine 03/09/23 12/03/23 Nell Titus MD [address] [address] GENERAL [facility], [address] [address] PCP - General Geriatric Medicine 12/04/23 01/24/24 Nell Titus MD [address] [facility] [address] DIV GENERAL [facility], [address] [address] PCP - General Geriatric Medicine 01/25/24 Katrina Gallegos NP [address] [place], [place] [id number] Nurse Practitioner Geriatric Medicine 12/28/18 04/23/24 Carolina Carlton MD [address] [facility] [address] [place] [address] Consulting Physician Pulmonary Disease 10/23/20 Bessie Barrientos MD [address] [place] [address] Consulting Physician Obstetrics and Gynecology 10/23/20 Amy Varghese MD [address] [address] Consulting Physician Allergy and Immunology 10/23/20 Larry Hughes MD PhD [address] [address] Architectural Project Manager Cardiology 10/23/20 Tiny Elaine MD [address] [facility] [address] [place] [address] Consulting Physician Dermatology 10/23/20 Frank Pérez MD [address] [facility] [address] [place] [address] Consulting Physician Otolaryngology 10/23/20 Robert Duque MD PhD [address] [facility] [address] [place] [address] Consulting Physician Gastroenterology 10/23/20 documented as of this encounter
--- OUTSIDE RECORDS SUMMARY | 2025-04-17 07:49 | XMS_ITS | Encounter Summary ---
Author Organization [facility] Address [address] [place] [address] Phone Care Team Providers Care Exploration Engineer Name Role Phone Roni Vasquez MD Primary Care Provider Martin Phillips MD Primary Care Provider Katrina Gallegos NP Unavailable Carolina Carlton MD Unavailable Bessie Barrientos MD Unavailable [phone] Amy Varghese MD Unavailable [phone] Larry Hughes MD PhD Unavailable [phone] Tiny Elaine MD Unavailable [phone] Frank Pérez MD Unavailable [phone] Robert Duque MD PhD Unavailable [phone] Audrey Kc MD Primary Care Provider [phone] Sarahy Zavala MD Primary Care P rovider Nell Titus MD Primary Care Provid er Nell Titus MD Primary Care Provid er Encounter Details Date Type Department Care Team (Latest Contact Info) Description 08/24/2018 Orders Only [facility] Scanning, Provider Social History Tobacco Use Types Packs/Day Years Used Date Smoking Tobacco: Former Smokeless Tobacco: Never Comments:stopped in 1978 Alcohol Use Standard Drinks/Week Comments Yes 0 (1 standard drink = 0.6 oz pur e alcohol) wine every so often Comments No Sex and Gender Information Value Date Recorded Sex Assigned at Not on file Legal 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 Gender Identity Female 02/28/2020 8:23 AM CDT Sexual Orientation Straight 02/28/2020 8: 23 AM CDT documented as of this encounter Plan of Treatment Not on file documented as of this encounter Procedures Procedure Name Priority Date/Time Associated Diagnosis Comments SCAN - LABS 08/24/2018 documented in this encounter Results * SCAN - LABS (08/24/2018) us Provider Scanning Final Result documented in this encounter Visit Diagnoses Not on filedocumented in this encounter Additional Health Concerns Infection Onset Date Last Indicated Resolved Time COVID: Suspected 06/13/2021 06/13/2021 06/27/2021 3:05 AM WASTE COLLECTOR documented as of this encounter Care Teams Exploration Engineer Relationship Specialty Start Date End Date Roni Vasquez MD [address] [place] [address] PCP - General 09/17/16 12/27/18 Martin Phillips MD [address] [place] [address] PCP - General Geriatric Medicine 12/28/18 01/12/23 Audrey Kc MD [address] [place] [address] PCP - General Geriatric Medicine 01/13/23 03/08/23 Sarahy Zavala MD [address] [facility] [phone] [place] [address] PCP - General Geriatric Medicine 03/09/23 12/03/23 Nell Titus MD [address] GENERAL [facility] [address] [address] PCP - General Geriatric Medicine 12/04/23 01/24/24 Nell Titus MD [address] IM GENERAL [facility] [address] [address] PCP - General Geriatric Medicine 01/25/24 Katrina Gallegos NP [address] [place] [id number] Nurse Practitioner Geriatric Medicine 12/28/18 04/23/24 Carolina Carlton MD [address] [place] [address] Consulting Physician Pulmonary Disease 10/23/20 Bessie Barrientos MD [address] [place] [address] Consulting Physician Obstetrics and Gynecology 10/23/20 Amy Varghese MD [address] [facility] [address] [address] Consulting Physician Allergy and Immunology 10/23/20 Larry Hughes MD PhD [facility] [address] Financial Assistance Advisor Cardiology 10/23/20 Tiny Elaine MD [address] [facility] [address] [place] [address] Consulting Physician Dermatology 10/23/20 Frank Pérez MD [address] [facility] [address] [place] [address] Consulting Physician Otolaryngology 10/23/20 Robert Duque MD PhD [facility] [address] [facility] [address] [place] [address] Consulting Physician Gastroenterology 10/23/20 documented as of this encounter
--- OUTSIDE RECORDS SUMMARY | 2025-04-17 07:49 | XMS_ITS | Encounter Summary ---
Author Organization [facility] Address [address] [place] [address] Phone Care Team Providers Care Audiovisual Technician Name Role Phone Katrina Gallegos NP Unavailable [phone] Carolina Carlton MD Unavailable Bessie Barrientos MD Unavailable Amy Varghese MD Unavailable Larry Hughes MD PhD Unavailable Tiny Elaine MD Unavailable [phone] Frank Pérez MD Unavailable Robert Duque MD PhD Unavailable [phone] Sarahy Zavala MD Primary Care P rovider Nell Titus MD Primary Care Provid er Nell Titus MD Primary Care Provid er Encounter Details Date Type Department Care Team (Late st Contact Info) Description 09/11/2023 Telephone [facility] Medicine Dermatology [address] [place] [address] Danish Concepcion CMA Social History Tobacco Use Types Packs/Day Years Used Date Smoking Tobacco: Former Cigarettes 1 8 1 971 - 1978 Smokeless Tobacco: Never Comments:stopped in 1978 Alcohol Use Standard Drinks/Week Comments Yes 6 (1 standard drink = 0.6 oz pur e alcohol) 2-3 xweek AUDIT-C Answer Date Recorded Q1: How often do you have a drink containing alc ohol? 2-3 times a week 01/08/2023 Q2: How many drinks containi ng alcohol do you have on a typical day when you are drinking? 1 or 2 01/08/2023 Q3: How often do you have si x or more drinks on one occasion? Never 01/08/2023 PHQ-2 Answer Date Recorded PHQ-2 Total Score (If total score is 3 or more points, staff should administer the PHQ-9) 3 10/23/2020 Exercise Vital Sign Answer Date Recorde d Days of Exercise per Week 3 days 2018 Minutes of Exercise per Session 60 min 12/28/2018 Hunger Vital Sign Answer Date Recorded Within the past 12 months, y ou worried that your food would run out before you got the money to buy more. Never true 05/22/20 23 Within the past 12 months, t he food you bought just didn't last and you didn't have money to get more. Never true 05/22/2023 Personal Safety Answer Date Recorded Have you ever been in or are you currently in a harmful physical or emotional relationship or is someone making you feel afraid or unsafe? 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 Gender Identity Female 02/28/2020 8:23 AM CDT Sexual Orientation Straight 02/28/2020 8: 23 AM CDT documented as of this encounter Plan of Treatment Not on file documented as of this encounter Visit Diagnoses Not on filedocumented in this encounter Care Teams Audiovisual Technician Relationship Specialty Start Date End Date Sarahy Zavala MD [address] [facility] [phone] [place] [address] PCP - General Geriatric Medicine 03/09/23 12/03/23 Nell Titus MD [address] DIV GENERAL [facility] [address] [place] [address] PCP - General Geriatric Medicine 12/04/23 01/24/24 Nell Titus MD [address] DIV GENERAL [facility] [address] [place] [address] PCP - General Geriatric Medicine 01/25/24 Katrina Gallegos, REBECCA Nurse Practitioner Geriatric Medicine 12/28/18 04/23/24 Carolina Carlton MD [address] [place] [address] Consulting Physician Pulmonary Disease 10/23/20 Bessie Barrientos MD [address] [address] Consulting Physician Obstetrics and Gynecology 10/23/20 Amy Varghese MD [address] [address] Consulting Physician Allergy and Immunology 10/23/20 Larry Hughes MD PhD [address] [facility] [address] [place] [address] Dimension Warehouse Supervisor Cardiology 10/23/20 Tiny Elaine MD [address] [facility] [address] [place] [address] Consulting Physician Dermatology 10/23/20 Frank Pérez MD [address] [place] [address] Consulting Physician Otolaryngology 10/23/20 Robert Duque MD PhD [address] [place] [address] Consulting Physician Gastroenterology 10/23/20 documented as of this encounter
--- OUTSIDE RECORDS SUMMARY | 2025-04-17 07:49 | XMS_ITS | Encounter Summary ---
Author Organization [facility] Address [address] [place] [address] Phone Care Team Providers Care Ferry Engineer Name Role Phone Roni Vasquez MD Primary Care Provider Martin Phillips MD Primary Care Provider Katrina Gallegos NP Unavailable Carolina Carlton MD Unavailable Bessie Barrientos MD Unavailable [phone] Amy Varghese MD Unavailable [phone] Larry Hughes MD PhD Unavailable [phone] Tiny Elaine MD Unavailable [phone] Frank Pérez MD Unavailable [phone] Robert Duque MD PhD Unavailable [phone] Audrey Kc MD Primary Care Provider + [phone] Sarahy Zavala MD Primary Care P rovider Nell Titus MD Primary Care Provid er Nell Titus MD Primary Care Provid er Encounter Details Date Type Department Care Team (Latest Contact Info) Description 01/08/2017 Orders Only [facility] CONVERSION Scanning, Provider Social History Tobacco Use Types Packs/Day Years Used Date Smoking Tobacco: Never Assessed Comments Unknown Sex and Gender Information Value Date Recorded Sex Assigned at Not on file Legal 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 Female 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 Gender Identity Female 02/28/2020 8:23 AM CDT Sexual Orientation Straight 02/28/2020 8: 23 AM CDT documented as of this encounter Plan of Treatment Not on file documented as of this encounter Procedures Procedure Name Priority Date/Time Associated Diagnosis Comments PULMONARY FUNCTION TEST (PFT) 01/08/2017 9:56 AM CDT documented in this encounter Results * PULMONARY FUNCTION TEST (PFT) (01/08/2017 9:56 AM CDT) Anatomical Region Laterality Modality PFT us Provider Scanning PFT ORDERABLES Final Result documented in this encounter Visit Diagnoses Not on filedocumented in this encounter Additional Health Concerns Infection Onset Date Last Indicated Resolved Time COVID: Suspected 06/13/2021 06/13/2021 06/27/2021 3:05 AM CONSTRUCTION RIGGER documented as of this encounter Care Teams Ferry Engineer Relationship Specialty Start Date End Date Roni Vasquez MD [address] [place] [address] PCP - General 09/17/16 12/27/18 Martin Phillips MD [address] [place] [address] PCP - General Geriatric Medicine 12/28/18 01/12/23 Audrey Kc MD [address] [place] [address] PCP - General Geriatric Medicine 01/13/23 03/08/23 Sarahy Zavala MD [address] [facility] [id number] [place] [address] PCP - General Geriatric Medicine 03/09/23 12/03/23 Nell Titus MD [address] DIV IM GENERAL [facility] [address] [address] PCP - General Geriatric Medicine 12/04/23 01/24/24 Nell Titus MD [address] DIV IM GENERAL MED, [facility] [address] [address] PCP - General Geriatric Medicine 01/25/24 Katrina Gallegos NP [facility] [place] [address] Nurse Practitioner Geriatric Medicine 12/28/18 04/23/24 Carolina Carlton MD [address] [facility] [address] [place] [address] Consulting Physician Pulmonary Disease 10/23/20 Bessie Barrientos MD [address] [address] Consulting Physician Obstetrics and Gynecology 10/23/20 Amy Varghese MD [address] [facility] [address] [place] [address] Consulting Physician Allergy and Immunology 10/23/20 Larry Hughes MD PhD [address] [facility] [address] [place] [address] Acute Care Assistant Cardiology 10/23/20 Tiny Elaine MD [address] [facility] [address] [place] [address] Consulting Physician Dermatology 10/23/20 Frank Pérez MD [address] [facility] [address] [place] [address] Consulting Physician Otolaryngology 10/23/20 Robert Duque MD PhD [address] [facility] [address] [place] [address] Consulting Physician Gastroenterology 10/23/20 documented as of this encounter
--- OUTSIDE RECORDS SUMMARY | 2025-04-17 07:49 | XMS_ITS | Clinical Summary ---
Author Organization [facility] Address [address] [place] [address] Care Team Providers Care Junior Sales Representative Name Role Phone Unavailable Primary Care Provider Unavailabl e Social History Tobacco Use Types Packs/Day Years Used Date Smoking Tobacco: Never Assessed Comments Unknown Sex and Gender Information Value Date Recorded Sex Assigned at Not on file Legal Sex Female 10:23 PM GAS JOCKEY Gender Identity Not on file Sexual Orientation Not on file Plan of Treatment Health Maintenance Due Date Last Done Comments Hepatitis C 1966 DTaP, Tdap and Td Vaccines ( 1 - Tdap) 10/07/1967 Pneumococcal Vaccine: 50+ Ye ars (1 of 1 - PCV) 1998 Zoster Vaccines (1 of 2) 1998 Dexa Scan (General) 2013 RSV Immunization or 60+ Years (1 - 1-dose 75+ series) 10/07/2023 COVID-19 Vaccine (2024-2 6 season) 2025 Influenza Adult (#1) 2025 Hepatitis A Vaccines Aged Out No long er eligible based on patient's age to complete this topic Meningococcal B Vaccine Aged Out No l onger eligible based on patient's age to complete this topic Meningococcal Vaccine Aged Out No gloria gabriel eligible based on patient's age to complete this topic RSV Immunizations Under 20 Months Aged Out No longer eligible based on patient's age to complete this topic
--- OUTSIDE RECORDS SUMMARY | 2025-04-17 07:49 | XMS_ITS | Encounter Summary ---
Author Organization [facility] Address [address] [place] [address] Phone Care Team Providers Care Test Engine Mechanic Name Role Phone Carolina Carlton MD Unavailable Bessie Barrientos MD Unavailable Amy Varghese MD Unavailable Larry Hughes MD PhD Unavailable [phone] Tiny Elaine MD Unavailable [phone] Frank Pérez MD Unavailable Robert Duque MD PhD Unavailable [phone] Nell Titus MD Primary Care Provid er Encounter Details Date Type Department Care Team (Late st Contact Info) Description 04/05/2025 Results Follow-Up [facility] Medicine Geriatric Medicine [address] [facility] Advanced Medicine 12th [place] [address] [place] [address] Nell Titus MD [address] [place], [place] [id number] Screening Mammogram Bilateral W Nader Social History Tobacco Use Types Packs/Day Years [...] on file 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 Gender Identity Female 02/28/2020 8:23 AM CDT Sexual Orientation Straight 02/28/2020 8: 23 AM CDT documented as of this encounter Plan of Treatment Not on file documented as of this encounter Visit Diagnoses Not on filedocumented in this encounter Care Teams Test Engine Mechanic Relationship Specialty Start Date End Date Nell Titus MD [address] [place] [address] PCP - General Geriatric Medicine 01/25/24 Carolina Carlton MD [address] [place] [address] Consulting Physician Pulmonary Disease 10/23/20 Bessie Barrientos MD [address] [place] [address] Consulting Physician Obstetrics and Gynecology 10/23/20 Amy Varghese MD [address] [place] [address] Consulting Physician Allergy and Immunology 10/23/20 Larry Hughes MD PhD [address] [place] [address] Chair Mechanic Cardiology 10/23/20 Tiny Elaine MD [address] [place] [address] Consulting Physician Dermatology 10/23/20 Frank Pérez MD [address] [place] [address] Consulting Physician Otolaryngology 10/23/20 Robert Duque MD PhD [facility] [address] [facility] [address] [place] [address] Consulting Physician Gastroenterology 10/23/20 documented as of this encounter
[2025-04-17 08:59] LABS: Cholesterol 204 mg/dL (0-200); HDL Direct 50 mg/dL; Triglycerides 189 mg/dL (<150)
== END 2025-04-17 07:39 | disposition home or self-care (01) ==
DX: E78.5 Hyperlipidemia, unspecified (principal)
CPT/HCPCS: 36415; 80061